=== PATIENT | female | born 1955 | race Caucasian/White ===

== ENCOUNTER 2017-05-03 13:07 | Inpatient (IN) | payer OTHER ==
[2017-05-03] MEDS ORDERED: BISACODYL 10 MG SUPP PR PRN (17:09)
[2017-05-03] MEDS ORDERED: SENNOSIDES 1 TAB PO PRN (17:09)
--- NOTE | 2017-05-03 17:38 | PDOREHIP ---
Admission [facility] - Admission - 3 Day Assessment Period Admission Date/Day 1: 05/03/17 Day 2: 05/04/17 Day 3: 05/05/17 - Active Diagnoses Comorbidities and Co-existing Conditions at Admission: 50973. None of the Above - Skin Conditions Unhealed Pressure Ulcer (1 or more/Stage 1 or >)-Admission: 0. No
[2017-05-03] MEDS: ACETAMINOPHEN 500 MG TAB PO PRN (17:44)
--- NOTE | 2017-05-03 19:34 | GHP ---
[f rep st] HISTORY AND PHYSICAL POST ADMISSION PHYSICIAN EVALUATION AND REHABILITATION TREATMENT PLAN DATE OF ADMISSION: 05/03/2017 DATE OF EVALUATION: 05/03/2017. TIME OF EVALUATION: 1655. REFERRING FACILITY: [facility] [place]. IMPAIRMENT GROUP: 1.1. DATE OF ONSET: 04/22/2017. REFERRING PHYSICIAN: Dr. Lemus. CONSULTING PHYSICIANS: There were consultations by Neurology and Surgery. REHABILITATION DIAGNOSIS: Cerebrovascular accident. ETIOLOGIC DIAGNOSIS: Left body involvement (right brain). HISTORY OF PRESENT ILLNESS: This patient was admitted to [facility] [place] on 04/22/2017, with vomiting. She had previously been admitted on 04/16/2017, with an incarcerated left inguinal hernia and had urgent surgical repair. She was discharged home the next day, and several days later, she began having vomiting and reported that she had considerable abdominal distention prior to vomiting. Abdominal CT on 04/22/2017, showed an ileus, which was considered to be postoperative. She was initially treated with NG drainage and IV hydration, but lost the NG tube and, eventually, the decision was made to put her on total parenteral nutrition, and a PICC line was inserted. On 04/29/2017, she was noted to have left-sided neglect. A stroke alert was called, and she had a head CT which showed an acute/subacute stroke in the right parietal region. She was evaluated by Teleneurology, Dr. Huerta. She was not a candidate for tPA. She also had shaking of the left arm and leg, consistent with a seizure. It was subsequently discovered that her PICC line had been placed intra- arterially, and this was thought to be the cause of the stroke. She was treated with aspirin, but no other secondary prevention medications were indicated, as etiology had been established as embolic from the intra-arterial PICC line. There was a tiny adherent thrombus along the course of the PICC line noted on CT angiogram. The PICC line was removed. She had some functional improvement, regaining some of her strength in her left upper extremity. She was initially on a heparin drip, which was subsequently discontinued, and she was stable for discharge to rehabilitation. Other labs and studies during her stay: Modified barium swallow was done on , which showed mildly impaired bolus control, mildly delayed initiation of pharyngeal swallow, moderate silent laryngeal penetration but no aspiration, and trace pharyngeal residue. The diagnosis was [id number] oropharyngeal dysphagia. She had abdominal CTs and plain x-rays, which demonstrated resolution of the postoperative ileus. She had a chest x-ray on 04/24/2017, which showed moderate patchy bibasilar airspace opacities and prominent interstitial markings consistent with chronic scarring or interstitial lung disease with possibility of superimposed infection and showed biapical bullous and emphysematous changes. MRI of the brain on 04/29/2017, showed patchy cortical and subcortical acute infarction in the high right frontal and parietal lobes. On 04/30/2017, a BMP showed normal renal function and electrolytes, but for a low calcium at 7.9. Liver functions showed a serum albumin of 3.8 and otherwise were within normal limits. A CBC showed a slightly elevated white blood cell count at 10.4. She had anemia, with a hemoglobin of 10.3 and hematocrit of 32.6. She had an elevated MCV at 103. Platelet count was elevated at 453. PRECAUTIONS: She is a fall risk, and she has aspiration precautions. ACTIVE COMORBIDITIES: She has the tier 2 comorbidity of dysphagia. She, otherwise, has no tier 1, tier 2 or tier 3 comorbidities. PAST MEDICAL HISTORY: 1. COPD. 2. Bladder cancer. 3. History of a decubitus ulcer over the coccyx. 4. Lung infection/empyema, with 20 days of intubation, approximately a year ago. PAST SURGICAL HISTORY: 1. Transurethral bladder surgery. 2. Femoral hernia repair on the left, 04/16/2017. 3. Knee arthroscopy. 4. Video-assisted thoracoscopy, approximately a year ago. PRE-HOSPITAL MEDICATIONS: 1. Albuterol 2 puffs q.4 hours p.r.n. 2. Beclomethasone inhaler 80 mcg 2 puffs twice daily. 3. Oxycodone 5 mg p.o. q.4 hours p.r.n. 4. Tiotropium 2 puffs daily. ADMISSION MEDICATIONS: 1. Acetaminophen 500 mg p.o. q.6 hours p.r.n. 2. Albuterol 2 puffs inhaled q.4 hours p.r.n. 3. Aspirin 162 mg p.o. daily. 4. Beclomethasone inhaled 2 puffs twice daily. 5. Tiotropium 2 puffs inhaled daily. ALLERGIES: There are no known drug allergies. FAMILY HISTORY: Noncontributory. SOCIAL HISTORY: She is a part former smoker. She quit in 2011. She has occasional alcohol, approximately 2 drinks per week. She is and lives with her . She has local children and grandchildren. She works as a what job titles mean at an [employer]. REVIEW OF SYSTEMS: She reports approximately a 9 pound weight loss during her hospitalization. She reports right lower quadrant abdominal pain, which she describes as sharp. She had a bowel movement today. She denies nausea or vomiting, and she has a good appetite. She denies loss of sensation or motor weakness. She reports that her vision is blurred, especially for near vision. She denies diplopia. She is not aware of difficulty swallowing. She denies headache or pain. Otherwise, she denies chest pain or palpitations. She denies dysuria or urinary frequency. She denies joint pain or joint swelling, and, otherwise, a 10-point review of systems is negative. PHYSICAL EXAM: VITAL SIGNS: Blood pressure is 94/72. Heart rate is 109. Respiratory rate is 15. Oxygen saturation is 96% on 3 L. Temperature is 36.7 degrees centigrade. Her weight is 39.1 kg, for a body mass index of 16.3. GENERAL: This is a thin, chronically ill, malnourished-appearing woman. Appears older than her chronologic age. Cooperative and in no acute distress. HEENT: Extraocular movements are intact. Pupils are equal, round, and reactive to light. Mucous membranes are moist. Dentition is in good condition. She has an uncrowded airway, Mallampati class 1. There is no posterior oropharyngeal mucus and no mucosal lesions. NECK: Supple, with no thyromegaly. HEART: Regular rate and rhythm with no murmurs, rubs, or gallops. LUNGS: She has reduced air movement bilaterally. There are no wheezes, rhonchi, or crackles. ABDOMEN: Soft, mildly tender in the right lower quadrant, nondistended, with normoactive bowel sounds. There is a questionable stool mass in the right lower quadrant. EXTREMITIES: There is no cyanosis or clubbing. There is trace edema, especially on the right foot. Radial pulses are 2+ bilaterally. Pedal pulses, the dorsalis pedis pulse is 2+ on the left and neither dorsalis pedis nor posterior tibialis pulse is palpable on the left foot. There is brisk capillary refill and the left foot is warm. NEUROLOGIC: She is alert and oriented x3. Cranial nerves 2 through 12 are grossly intact. Her strength is reduced, approximately 4/5 in the left upper extremity overall, including the biceps, triceps and hand access rep. Her deltoids are 5/5 bilaterally. There is 4+/5 strength to the left hip flexor and hamstring. Otherwise, lower extremity strength is 5/5 overall bilaterally. Sensation is intact to light touch. Deep tendon reflexes are 2+ bilaterally at the biceps, patellar, and Achilles tendons. Plantar reflex is indeterminate bilaterally. There is pronator drift on the left upper extremity. Finger-to- nose on the right is normal, on the left is slow and mildly inaccurate, but smooth and without past-pointing. SKIN: There is no skin ulceration. There is no rash. There is scarring, which is nonblanching, directly over the coccyx , but there is no erythema. Current level of function per the preadmission screen: Regarding diet, feeding , and swallowing she required supervision and setup. For grooming she required supervision and setup. For bathing she needed assistance. For dressing she needed minimal assistance. For toileting she needed assistance. For bed mobility she needed supervision and setup. Transfers were accomplished with minimal assist, verbal cues, and a front-wheeled walker. Sitting balance was fair minus requiring minimal assist, but appears to be better on today's exam. Endurance was poor. She was able to walk 75 feet. She could stand for 1 to 3 minutes. She had loss of balance to the left side and needed assistance from the therapist to correct. Regarding cognition, she was noted to be able to follow simple directions. She needed some repetition for new learning. She had poor safety awareness. She was noted to have left inattention and to collide with objects on the left. IMPRESSION: This patient is a 62-year-old woman who was hospitalized with abdominal pain and vomiting and was diagnosed with a postoperative ileus. This was treated nonsurgically, but eventually, she needed total parenteral nutrition and she had the unfortunate occurrence of a cerebrovascular accident due to the PICC line for the total parenteral nutrition being placed intra- arterially, rather than intravenously. She was not appropriate for thrombolytics. However, she was on a heparin drip initially and then subcutaneous heparin. The PICC line had some thrombus around it. It was removed. She had improvement in her nutrition, and was able to take food and drink by mouth. However, overall she has had weight loss during her hospitalization, and she has dysphagia requiring a dysphagia 2 diet and nectar thick liquids. Her functional status is further compromised by severe chronic obstructive pulmonary disease, with a history of a 37% FEV1 and continuous oxygen dependency. She is otherwise medically stable and appropriate for rehabilitation. Her goal is to complete a rehabilitation stay and then return home with family, Home Health Care, and any equipment that she may need. For a safe discharge, it is expected that she will achieve moderate independence with mobility, activities of daily living, cognition, swallowing, and medication management. There will be medication education and neurological education for the patient and her family. There will be family training for the patient to go home. She will have therapy with Physical Therapy, Occupational Therapy, and Speech and Language Pathology for 60 minutes per day per discipline on 5 to 7 days of the week. Her expected duration of stay is 14 to 17 days. It is anticipated that upon discharge she will continue to benefit from Home Health Services, including Speech and Language Pathology, Occupational Therapy and Physical Therapy. Additionally, she will benefit from a stroke support group. PLAN: 1. Cerebrovascular accident, right frontal and parietal, with left-sided weakness and hemineglect. PT and OT to optimize mobility and activities of daily living. 2. Dysphagia and cognitive impairment to be assessed further and treated per Speech and Language Pathology. 3. COPD. Continue oxygen and inhalers. 4. Right lower quadrant abdominal pain and history of postoperative ileus. Low threshold to investigate further with abdominal imaging and labs. 5. Malnutrition, clinically with weight loss and underweight status. Will have evaluation and treatment per the dietitian. Will repeat a comprehensive metabolic profile in the morning. 6. Anemia with an elevated MCV. We will check a CBC in the morning, as well as an iron panel and vitamin B12. 7. Prophylaxis. She is not discharged with any deep vein thrombosis prophylaxis from the hospital. She will be evaluated regarding mobility and if mobility is sufficient there will be no need for pharmacologic prophylaxis. She will be given sequential compression devices to her legs at night. 8. Skin. History of coccygeal decubitus ulcer. She has Allevyn over her coccyx for protection, but no decubitus ulcer at present. She appears able to have normal mobility in bed and has normal sensation. She will be monitored closely. /[id number]/MODL MTDD
[2017-05-03] MEDS: BECLOMETHASONE QVAR 80 MDI IH SCH (21:30)
[2017-05-04] MEDS: ACETAMINOPHEN 500 MG TAB PO PRN ×4 (01:46→20:20)
[2017-05-04] MEDS: ASPIRIN 81 MG CHEWABLE TAB PO SCH (07:39)
[2017-05-04] MEDS: BECLOMETHASONE QVAR 80 MDI IH SCH ×2 (08:03→19:39)
[2017-05-04] MEDS: ALBUTEROL 200 PUFFS/18 GM MDI IH PRN ×3 (08:12→19:38)
[2017-05-04] MEDS ORDERED: Tiotropium Bromide [Spiriva Respimat] 2 INH IH SCH (09:00)
--- NOTE | 2017-05-04 09:45 | SOAPPROG ---
SOAP Progress Note Assessment/Plan: Assessment: Cerebrovascular accident, right frontal and parietal, with left-sided weakness and hemineglect. * PT and OT to optimize mobility and activities of daily living. Dysphagia and cognitive impairment to be assessed further and treated per Speech and Language Pathology. COPD. Continue oxygen and inhalers. * Encouraged incentive spirometry. Right lower quadrant abdominal pain and history of postoperative ileus. Resolved. Malnutrition, clinically with weight loss and underweight status. Low albumin. * [employer] Company Truck Driver consult. Anemia with an elevated MCV. * Has iron deficiency. Will replete p.o. beginning 05/04/2017. * B12 and liver functions are normal. Unclear etiology of macrocytosis. Prophylaxis. She is not discharged with any deep vein thrombosis prophylaxis from the hospital. She will be evaluated regarding mobility. Most likely there is no need for pharmacologic prophylaxis. She will have sequential compression devices to her legs at night. Skin. History of coccygeal decubitus ulcer. She has Allevyn over her coccyx for protection, but no decubitus ulcer at present. She appears able to have normal mobility in bed and has normal sensation. Optimize nutrition. She will be monitored closely. 05/04/17 12:46 Subjective: No complaints. Slept well. No cough or dyspnea. Abdominal discomfort is resolved. Bowels moving normally. Objective: Vital Signs Temp Pulse Resp BP Pulse Ox 36.8 C 90 16 102/67 97 05/04/17 06:39 05/04/17 06:39 05/04/17 06:39 05/04/17 06:39 05/04/17 06:39 05/03/17 05/04/17 05/05/17 05:59 05:59 05:59 Intake Total 240 Output Total 1 Balance 239 Physical Exam - Physical Exam General Appearance: WD/WN, alert, no apparent distress, thin Respiratory: normal breath sounds, crackles (Very fine crackles bilaterally at lung bases), No rhonchi, No wheezing Cardiac/Chest: regular rate, rhythm, tachycardia, No diastolic murmur, No systolic murmur Skin: normal color, warm/dry Neuro/Psych: alert, normal mood/affect, oriented x 3 ICD10 Worksheet Patient Problems: Problems Problem Status Onset CVA (cerebral vascular accident) Acute
[2017-05-04 10:14] LABS: % IMMATURE GRANULYOCYTES 0.4 % (0.0-1.1); ABSOLUTE IMMATURE GRANULOCYTES 0.05 10^3/uL (0.00-0.10); ADD DIFF? NO; ADD MORPH? NO; ADD SCAN? NO; ATYPICAL LYMPHOCYTE FLAG 20 (0-99); FRAGMENT RBC FLAG 0 (0-99); HEMATOCRIT 34.8 % (38.0-47.0); HEMOGLOBIN 11.1 g/dL (12.6-16.3); LEFT SHIFT FLG 0 (0-99); LIPEMIA HEMOLYSIS FLAG 80 (0-99); MEAN CELL HEMOGLOBIN 33.3 pg (27.9-34.1); MEAN CELL HEMOGLOBIN CONCENTR. 31.9 g/dL (32.4-36.7); MEAN CELL VOLUME 104.5 fL (81.5-99.8); MEAN PLATELET VOLUME 9.4 fL (8.7-11.7); PLATELET CLUMPS FLAG 20 (0-99); PLATELET COUNT 686 10^3/uL (150-400); RED BLOOD CELL COUNT 3.33 10^6/uL (4.18-5.33); RED CELL DISTRIBUTION WIDTH 12.4 % (11.5-15.2)
[2017-05-04 10:31] LABS: ALANINE AMINOTRANSFERASE 38 IU/L (9-52); ALBUMIN 2.9 g/dL (3.5-5.0); ALKALINE PHOSPHATASE 122 IU/L (38-126); ANION GAP 9 mEq/L (8-16); ASPARTATE AMINOTRANSFERASE 15 IU/L (14-46); BILIRUBIN,TOTAL 0.2 mg/dL (0.1-1.4); CALCIUM 8.9 mg/dL (8.5-10.4); CARBON DIOXIDE 33 mEq/l (22-31); CHLORIDE 100 mEq/L (97-110); CREATININE 0.4 mg/dL (0.6-1.0); GLOMERULAR FILTRATION RATE > 60; GLUCOSE 108 mg/dL (70-100); POTASSIUM 4.1 mEq/L (3.5-5.2); SODIUM 142 mEq/L (134-144); TOTAL PROTEIN 5.5 g/dL (6.3-8.2)
[2017-05-04 10:40] LABS: % SATURATION 8 % (20-55); TOTAL IRON BINDING CAPACITY 237 ug/dL (260-490)
[2017-05-04] MEDS: FERROUS SULFATE 325 MG TAB PO SCH (14:23)
[2017-05-04] MEDS: TIOTROPIUM INHALER 18 MCG/DOSE 5 DOSE/MDI IH SCH (15:35)
[2017-05-05] MEDS: ALBUTEROL 200 PUFFS/18 GM MDI IH PRN ×2 (07:43→19:20)
[2017-05-05] MEDS: TIOTROPIUM INHALER 18 MCG/DOSE 5 DOSE/MDI IH SCH (07:44)
[2017-05-05] MEDS ORDERED: TIOTROPIUM INHALER 18 MCG/DOSE 5 DOSE/MDI IH SCH (09:00)
[2017-05-05] MEDS: BECLOMETHASONE QVAR 80 MDI IH SCH ×2 (09:17→23:07)
[2017-05-05] MEDS: FERROUS SULFATE 325 MG TAB PO SCH (09:39)
[2017-05-05] MEDS: ASPIRIN 81 MG CHEWABLE TAB PO SCH (09:39)
[2017-05-05] MEDS: ACETAMINOPHEN 500 MG TAB PO PRN ×3 (09:39→22:39)
--- NOTE | 2017-05-05 13:27 | HOSPPROG ---
Hospitalist Progress Note Assessment/Plan: Assessment: 62 yo F p/w acute CVA provoked by arterial PICC line Plan: # Cerebrovascular accident, right frontal and parietal, with left-sided weakness and hemineglect. Substantially improving - PT and OT to optimize mobility and activities of daily living. - Persistent, residual headache, mildly improved w/ tylenol, add PRN low dose oxy IR - Massage therapy requested for Sunday # Dysphagia and cognitive impairment to be assessed further and treated per Speech and Language Pathology. # Chronic hypoxic respiratory failure 2/2 COPD. Continue oxygen and inhalers. - Encouraged incentive spirometry. # Postoperative ileus. Resolved. # Malnutrition, clinically with weight loss and underweight status w/ BMI 15.7. Low albumin. - Power Generation Plant Operator consult. # Macrocytic Anemia. Unclear etiology, likely 2/2 a chronic inflammatory disease process resulting in iron sequestration and low values - cont PO iron - no e/o blood loss # History of coccygeal decubitus ulcer. She has Allevyn over her coccyx for protection, but no decubitus ulcer at present. She appears able to have normal mobility in bed and has normal sensation. Optimize nutrition. She will be monitored closely. PPx. High risk, recent CVA, keep on SCDs Code. Full Diet. Regular Dispo. ADD uncertain, pending therapy reassessments Subjective: reports improvements in strength, ongoing CALI Objective: Vital Signs Temp Pulse Resp BP Pulse Ox 36.5 C 114 H 17 115/90 H 91 L 05/05/17 07:34 05/05/17 07:34 05/05/17 07:34 05/05/17 07:34 05/05/17 07:34 Laboratory Results 05/04/17 08:40 05/04/17 08:40 05/04/17 05/05/17 05/06/17 05:59 05:59 05:59 Intake Total 240 1166 874 Output Total 1 1 Balance 239 1165 874 - Physical Exam Constitutional: no apparent distress, appears nourished, chronically ill appearing, uncomfortable Cardiovascular: regular rate and rhythym, no murmur, rub, or gallop, No edema Respiratory: no respiratory distress, no rales or rhonchi, clear to auscultation Gastrointestinal: normoactive bowel sounds, soft, non-tender abdomen, no palpable masses, No guarding, No distension Neurologic: AAOx3, sensation intact bilaterally, CN II-XII Intact, No weakness ( motor 5/5 bilat UE/LE) Psychiatric: interacting appropriately, not anxious, not encephalopathic, thought process linear ICD10 Worksheet Patient Problems: Problems Problem Status Onset CVA (cerebral vascular accident) Acute
[2017-05-05] MEDS: oxyCODONE IR 5 MG TAB PO PRN ×3 (14:11→22:39)
[2017-05-06] MEDS: ACETAMINOPHEN 500 MG TAB PO PRN ×4 (08:02→21:25)
[2017-05-06] MEDS: oxyCODONE IR 5 MG TAB PO PRN ×4 (08:02→21:25)
[2017-05-06] MEDS: ASPIRIN 81 MG CHEWABLE TAB PO SCH (08:02)
[2017-05-06] MEDS: FERROUS SULFATE 325 MG TAB PO SCH (08:02)
[2017-05-06] MEDS: ALBUTEROL 200 PUFFS/18 GM MDI IH PRN ×2 (08:03→20:00)
[2017-05-06] MEDS: BECLOMETHASONE QVAR 80 MDI IH SCH ×2 (08:03→19:46)
[2017-05-06] MEDS: TIOTROPIUM INHALER 18 MCG/DOSE 5 DOSE/MDI IH SCH (08:05)
--- NOTE | 2017-05-06 13:33 | HOSPPROG ---
Hospitalist Progress Note Assessment/Plan: Assessment: 62 yo F p/w acute CVA provoked by arterial PICC line Plan: # Cerebrovascular accident, right frontal and parietal, with left-sided weakness and hemineglect. Substantially improving, able to transfer w/o assist today - PT and OT to optimize mobility and activities of daily living. - Persistent, residual headache, improved w/ combination of tylenol and oxy IR - Massage therapy requested for Sunday # Chronic pain w/ continuous opiate dependency. Pt reported to RN that she uses Oxy IR at home, which explains her tolerance to the oxy IR for CALI - at discharge, will need to determine safe amount of oxy IR to prescribe specifically for use of post-CVA CALI # Dysphagia and cognitive impairment to be assessed further and treated per Speech and Language Pathology. # Chronic hypoxic respiratory failure 2/2 COPD. Continue oxygen and inhalers. - Encouraged incentive spirometry. - suspect this is the cause of her baseline sinus tach, reports baseline HR is 100-120, no further w/u indicated # Postoperative ileus. Resolved. # Malnutrition, clinically with weight loss and underweight status w/ BMI 15.7. Low albumin. - Ios Programmer consult. # Macrocytic Anemia. Unclear etiology, likely 2/2 a chronic inflammatory disease process resulting in iron sequestration and low values - cont PO iron - no e/o blood loss # History of coccygeal decubitus ulcer. She has Allevyn over her coccyx for protection, but no decubitus ulcer at present. She appears able to have normal mobility in bed and has normal sensation. Optimize nutrition. She will be monitored closely. PPx. High risk, recent CVA, keep on SCDs Code. Full Diet. Regular Dispo. ADD uncertain, pending therapy reassessments Subjective: pain level down to 1 w/ oxy/tylenol combo, headache has reoccured today, increasing mobility Objective: Vital Signs Temp Pulse Resp BP Pulse Ox 36.6 C 109 H 22 H 116/86 H 94 05/06/17 08:00 05/06/17 08:00 05/06/17 08:00 05/06/17 08:00 05/06/17 08:00 Laboratory Results 05/04/17 08:40 05/04/17 08:40 05/05/17 05/06/17 05/07/17 05:59 05:59 05:59 Intake Total 1166 1732 476 Output Total 1 Balance 1165 1732 476 - Physical Exam Constitutional: no apparent distress, not in pain, chronically ill appearing, No uncomfortable Cardiovascular: tachycardia, No systolic murmur, No irregularly irregular, No edema Respiratory: no respiratory distress, no rales or rhonchi, clear to auscultation , No expiratory wheeze, No inspiratory crackles, No bronchial breath sounds Gastrointestinal: normoactive bowel sounds, soft, non-tender abdomen, no palpable masses Neurologic: AAOx3, sensation intact bilaterally, CN II-XII Intact, No weakness Psychiatric: interacting appropriately, not anxious, not encephalopathic, thought process linear ICD10 Worksheet Patient Problems: Problems Problem Status Onset CVA (cerebral vascular accident) Acute
[2017-05-07] MEDS: oxyCODONE IR 5 MG TAB PO PRN ×5 (02:57→21:34)
[2017-05-07] MEDS: FERROUS SULFATE 325 MG TAB PO SCH (07:51)
[2017-05-07] MEDS: ACETAMINOPHEN 500 MG TAB PO PRN ×4 (07:51→21:34)
[2017-05-07] MEDS: ASPIRIN 81 MG CHEWABLE TAB PO SCH (07:51)
[2017-05-07] MEDS: ALBUTEROL 200 PUFFS/18 GM MDI IH PRN (07:52)
[2017-05-07] MEDS: BECLOMETHASONE QVAR 80 MDI IH SCH ×2 (07:52→20:00)
[2017-05-07] MEDS: TIOTROPIUM INHALER 18 MCG/DOSE 5 DOSE/MDI IH SCH (07:53)
--- NOTE | 2017-05-07 13:03 | SOAPPROG ---
SOAP Progress Note Assessment/Plan: Assessment: Cerebrovascular accident, right frontal and parietal, with left-sided weakness and hemineglect. * Initial functional independence measure 82 on 05/07/2017. Independent with bed mobility and transfers, independent in room. Ambulated 200 feet standby assist with no device. Climbed 9 stairs x2 with rest break. Independent with activities of daily living. Advancing to independent on the unit today * Has left gaze preference and impaired visual acuity, 20/40 on left and 20/50 on right. * Continue PT and OT to optimize mobility and activities of daily living. Dysphagia. Advanced to dysphagia 3 diet and thin liquids; trial of regular diet today 05/07/2017. Continue Speech and Language Pathology. Dysphonia. Pre-existing following prolonged intubation approximately a year ago but subjectively worse since CVA. YARN SPOOLER recommends ENT evaluation to visualize vocal cords. COPD. Continue oxygen and inhalers. * Encouraged incentive spirometry. Right lower quadrant abdominal pain and history of postoperative ileus. Resolved. Malnutrition, clinically with weight loss and underweight status. Low albumin. * Brick Chimney Builder consult. * Eating 100% of meals plus supplements. Anemia with an elevated MCV. * Has iron deficiency. Will replete p.o. beginning 05/04/2017. * B12 and liver functions are normal. Unclear etiology of macrocytosis. Prophylaxis. Mobility has improved. There is no need for pharmacologic prophylaxis. She will have sequential compression devices to her legs at night. Skin. History of coccygeal decubitus ulcer. She has Allevyn over her coccyx for protection, but no decubitus ulcer at present. She appears able to have normal mobility in bed and has normal sensation. Optimize nutrition. She will be monitored closely. Attended staffing, 15 minutes. Discussed with dietitian, nursing, PT, OT, YARN SPOOLER. Set discharge date of 05/09/2017. Follow up with neuro optometry regarding visual issues. Follow up with ENT regarding dysphonia. Recommend pre driving screen before returning to driving. Can likely return to work on a limited basis for instance to hours a day 3 days a week; dysphonia and advice of ENT may limit work hours. 05/07/17 12:58 Subjective: No complaints, feeling good, not in pain at present, no cough or dyspnea, no fevers or chills. Objective: Vital Signs Temp Pulse Resp BP Pulse Ox 36.8 C 105 H 20 106/74 92 05/06/17 18:05 05/06/17 18:05 05/06/17 18:05 05/06/17 18:05 05/06/17 18:05 Laboratory Results 05/04/17 08:40 05/04/17 08:40 05/06/17 05/07/17 05/08/17 05:59 05:59 05:59 Intake Total 1852 1326 Balance 1852 1326 - Time Spent With Patient Time Spent With Patient: Greater than 35 minutes floor time today, including more than 50% of time in coordination of care during staffing meeting, and counseling patient. Physical Exam - Physical Exam General Appearance: alert, no apparent distress, cachetic Respiratory: No respiratory distress, No accessory muscle use Skin: normal color, warm/dry Neuro/Psych: no motor/sensory deficits, alert, normal mood/affect, oriented x 3 , other (Ambulates in [place] with no device, holding oxygen tank in wheeled carrier.) ICD10 Worksheet Patient Problems: Problems Problem Status Onset CVA (cerebral vascular accident) Acute
[2017-05-08] MEDS: ACETAMINOPHEN 500 MG TAB PO PRN ×4 (02:24→19:03)
[2017-05-08] MEDS: oxyCODONE IR 5 MG TAB PO PRN ×2 (02:24→07:51)
[2017-05-08 07:48] VITALS: RESP 16
[2017-05-08] MEDS: FERROUS SULFATE 325 MG TAB PO SCH (07:52)
[2017-05-08] MEDS: BECLOMETHASONE QVAR 80 MDI IH SCH ×2 (07:53→20:02)
[2017-05-08] MEDS: TIOTROPIUM INHALER 18 MCG/DOSE 5 DOSE/MDI IH SCH (07:54)
[2017-05-08] MEDS: ALBUTEROL 200 PUFFS/18 GM MDI IH PRN ×3 (07:56→20:04)
[2017-05-08] MEDS: ASPIRIN 81 MG CHEWABLE TAB PO SCH (08:00)
--- NOTE | 2017-05-08 14:01 | SOAPPROG ---
SOAP Progress Note Assessment/Plan: Assessment: Cerebrovascular accident, right frontal and parietal, with left-sided weakness and hemineglect. * Initial functional independence measure 82 on 05/07/2017. Independent with bed mobility and transfers, independent in room. Ambulated 200 feet standby assist with no device. Climbed 9 stairs x2 with rest break. Independent with activities of daily living. Advancing to independent on the unit 05/07/2017. * Has left gaze preference and impaired visual acuity, 20/40 on left and 20/50 on right. * Continue PT and OT to optimize mobility and activities of daily living. Dysphagia. Advanced to dysphagia 3 diet and thin liquids; advanced to regular diet today 05/08/2017. Continue Speech and Language Pathology. Dysphonia. Pre-existing following prolonged intubation approximately a year ago but subjectively worse since CVA. MATERIALS SCIENTIST recommends ENT evaluation to visualize vocal cords. Micro emboli visible under fingernails of right hand. No signs or symptoms of compromised circulation otherwise. Likely consequence of arterial placement of PICC line. Palpable nodule at PICC line site is likely a blood clot versus eschar versus scarring which is likely to resolve with no further need for intervention. COPD. Continue oxygen and inhalers. * Encouraged incentive spirometry. Right lower quadrant abdominal pain and history of postoperative ileus. Resolved. Malnutrition, clinically with weight loss and underweight status. Low albumin. * Social And Human Services Assistant consult. * Eating 100% of meals plus supplements. Anemia with an elevated MCV. * Has iron deficiency. Will replete p.o. beginning 05/04/2017. * B12 and liver functions are normal. Unclear etiology of macrocytosis. Prophylaxis. Mobility has improved. There is no need for pharmacologic prophylaxis. She will have sequential compression devices to her legs at night. Skin. History of coccygeal decubitus ulcer. She has Allevyn over her coccyx for protection, but no decubitus ulcer at present. She appears able to have normal mobility in bed and has normal sensation. Optimize nutrition. She will be monitored closely. Continue discharge date of 05/09/2017. Follow up with neuro optometry regarding visual issues. Follow up with ENT regarding dysphonia. Follow up with General surgery. Outpatient OT and MATERIALS SCIENTIST. Recommend pre driving screen before returning to driving. Can likely return to work on a limited basis, for instance to hours a day 3 days a week; dysphonia and advice of ENT may limit work hours. 05/08/17 14:13 Subjective: Notes a lump at the PICC line site on her right arm. Not tender and no pain proximally or in axilla. Also has noticed new seo on the fingernails of her right arm. No cough or dyspnea, no fevers or chills. Feels ready to go home. Objective: Vital Signs Temp Pulse Resp BP Pulse Ox 36.7 C 95 16 105/73 91 L 05/08/17 07:47 05/08/17 07:47 05/08/17 07:47 05/08/17 07:47 05/08/17 07:47 Laboratory Results 05/04/17 08:40 05/04/17 08:40 05/07/17 05/08/17 05/09/17 05:59 05:59 05:59 Intake Total 1326 1260 Balance 1326 1260 Physical Exam - Physical Exam General Appearance: alert, no apparent distress, cachetic Respiratory: normal breath sounds, No crackles, No rhonchi, No wheezing Cardiac/Chest: regular rate, rhythm, tachycardia, No edema Skin: normal color, warm/dry, other (multiple longitudinal dark brown markings 1 - 2 mm long under proximal nails R hand.) Neuro/Psych: no motor/sensory deficits, alert, normal mood/affect, oriented x 3 ICD10 Worksheet Patient Problems: Problems Problem Status Onset CVA (cerebral vascular accident) Acute
--- NOTE | 2017-05-08 14:24 | PDOREHIP ---
Admission [facility] - Admission - 3 Day Assessment Period Admission Date/Day 1: 05/03/17 Day 2: 05/04/17 Day 3: 05/05/17 Discharge [facility] - Discharge - 3 Day Assessment Period 2 Days Prior to Anticipated Discharge Date: 05/07/17 1 Day Prior to Anticipated Discharge Date: 05/08/17 Anticipated Discharge Date: 05/09/17 - Discharge Skin Conditions Unhealed Pressure Ulcer (1 or more/Stage 1 or >)-Discharge: 0. No
[2017-05-09] MEDS: ASPIRIN 81 MG CHEWABLE TAB PO SCH (07:13)
[2017-05-09] MEDS: FERROUS SULFATE 325 MG TAB PO SCH (07:14)
[2017-05-09] MEDS: ALBUTEROL 200 PUFFS/18 GM MDI IH PRN (07:14)
[2017-05-09] MEDS: BECLOMETHASONE QVAR 80 MDI IH SCH (07:14)
[2017-05-09] MEDS: ACETAMINOPHEN 500 MG TAB PO PRN ×2 (07:15→11:09)
[2017-05-09 07:40] VITALS: BP 106/70; PULSE 120; TEMP 97.3; O2SAT 98
[2017-05-09] MEDS: TIOTROPIUM INHALER 18 MCG/DOSE 5 DOSE/MDI IH SCH (12:48)
--- NOTE | 2017-05-09 14:40 | GDS ---
[f rep st] DISCHARGE SUMMARY ADMITTING DIAGNOSES: Cerebrovascular accident. DISCHARGE DIAGNOSES: 1. Cerebrovascular accident. 2. Chronic obstructive pulmonary disease. 3. Cachexia. 4. Dysphonia. 5. Iron-deficiency anemia. CONSULTATIONS: There were none. PROCEDURES: There were none. COMPLICATIONS: There were none. HISTORY AND HOSPITAL COURSE: This patient was admitted to [facility] initially and was diagnosed with a postoperative ileus. She had had inguinal hernia surgery recently. Treatment of the ileus involved nasogastric feeding and eventually total parenteral nutrition. The ileus resolved, but she had a stroke during her hospital stay. The etiology was determined to be PICC line having been placed for TPN in the brachial artery rather than in the vein and subsequently an embolic stroke. It was in the right frontal and parietal regions. She had left-sided weakness and hemineglect. PICC line was removed and she was soon medically stabilized and ready for inpatient rehabilitation. She had debility when she was admitted. She was requiring assistance with bathing, dressing, toileting, and transfers. She had impaired sitting balance and reduced endurance. She had improvement throughout her stay. Functional independence measure was quantified on 05/09 and was 82, which is consistent with assisted living facility level of function. She was independent with bed mobility and transfers and independent in her room. She had ambulated 200 feet with standby assist and no device. She was able to climb 9 stairs x2 with a rest break. She was advanced to independent on the unit on 05/07/2017. She had dysphagia initially and was advanced progressively to a regular diet. She was noted to have dysphonia. This was pre-existing and likely followed a prolonged intubation and hospitalization approximately a year prior, but patient felt it was worse since the CVA. Speech and Language Pathology recommended an ENT evaluation to examine her vocal cords. She had COPD. She was maintained on oxygen and inhalers, and her COPD was stable. Regarding malnutrition and cachexia, she had a consult with the dietitian and supplements were provided. She was eating 100% of her meals. She had anemia with an elevated MCV. B12 and liver functions were normal. She was found to have iron deficiency, which was repleted p.o. beginning 05/04/2017. PHYSICAL EXAM ON DAY OF DISCHARGE: VITAL SIGNS: Blood pressure is 106/70, heart rate is 120, respiratory rate is 16, oxygen saturation is 98% on 3 L. Temperature is 36.3 degrees centigrade. Her weight is 36.4 kg for a body mass index of 15.2. GENERAL: This is a cachectic woman sitting up in bed, cooperative, and in no acute distress. HEART: There is a regular rate and rhythm with no murmurs, rubs, or gallops. She is tachycardic. LUNGS: Clear to auscultation bilaterally. ABDOMEN: Soft, nontender, nondistended with normoactive bowel sounds. NEUROLOGIC: She is alert and oriented x3. There is no focal weakness. She ambulates with a normal gait and no device. LABORATORIES AND STUDIES: During her stay on 05/04/2017, she had an elevated white blood cell count at 11.83. There was no left shift. Hemoglobin was 11.1 , hematocrit was 34.8. MCV was elevated at 104.5. Vitamin B12 was normal at 585. Iron panel revealed a low iron at 20, a low TIBC at 237 and a very low iron saturation at 8%. Renal function and electrolytes revealed an elevated carbon dioxide at 33, a low creatinine at 0.4, and otherwise they were within normal limits. Liver function tests, other than a low albumin at 2.9 were also within normal limits. DISCHARGE PLAN: Condition upon discharge is good. Activity is ad donnie, but no driving until she completes a neuroophthalmology screen regarding vision changes. Diet is regular. DATE OF NEXT APPOINTMENT: She will follow up with her primary care provider, Dr. Ekaterina Bravo, on 05/14/2017. She will follow up with Neuro- ophthalmology and Otolaryngology, to be scheduled by [facility]. MEDICATIONS ON DISCHARGE: 1. Ferrous sulfate 325 mg p.o. daily through June 01. 2. Oxycodone IR 2.5 to 5 mg p.o. q.4 hours p.r.n. 3. Senna 1 p.o. b.i.d. p.r.n. 4. Aspirin 162 mg p.o. daily. 5. Acetaminophen 500 mg p.o. q.6 hours p.r.n. headache. 6. Albuterol 2 puffs q.4 hours p.r.n. 7. Beclomethasone inhaler 80 mcg 2 puffs b.i.d. 8. Tiotropium 2 inhalations daily. ISSUES TO BE ADDRESSED AT FOLLOWUP: 1. Functional status and vision changes. She will have outpatient therapies per Jaylen and she should follow up with Neuro-ophthalmology. 2. Dysphagia. She has been advanced to regular diet. 3. Dysphonia. She needs to see Otolaryngology to examine her vocal cords. She may need a period of vocal rest, to be determined by Otolaryngology. 4. History of arterial placement of PICC line. She was noted to have microemboli under the distal fingernails of the right hand. These are expected to resolve over time. 5. COPD has been stable. Continue oxygen and inhalers. 6. Malnutrition with low albumin. In spite of taking 100% of her meals, she actually lost a little bit of weight during her stay and she can follow up with the dietitian per Jaylen as determined by Primary Care. 7. Anemia. She is iron deficient. Continue iron replacement through 2016, and follow up with primary care provider. Greater than 30 minutes floor time were spent on this discharge including medication reconciliation, coordination of care and counseling patient. Copy requested to: Dr. Ekaterina York /[id number]/MODL MTDD
== END 2017-05-09 13:31 | disposition home or self-care (01) | DRG 57 ==
LOC: BREH 16:25
PROVIDERS: ADMIT Internal Medicine; ATTEND Internal Medicine
PROC: F0636ZZ Communicative/Cognitive Integration Skills Treatment of Neurological System - Whole Body (ICD-10-PCS; principal; 2017-05-03)
PROC: F08Z7ZZ Vocational Activities and Functional Community or Work Reintegration Skills Treatment (ICD-10-PCS; principal; 2017-05-03)
PROC: F07M3ZZ Motor Function Treatment of Musculoskeletal System - Whole Body (ICD-10-PCS; principal; 2017-05-03)
DX: I69.354 Hemiplegia and hemiparesis following cerebral infarction affecting left non-dominant side (principal); E46 Unspecified protein-calorie malnutrition; Z68.1 Body mass index [BMI] 19.9 or less, adult; I69.391 Dysphagia following cerebral infarction; T82.818D Embolism due to vascular prosthetic devices, implants and grafts, subsequent encounter; J44.9 Chronic obstructive pulmonary disease, unspecified; J96.10 Chronic respiratory failure, unspecified whether with hypoxia or hypercapnia; D50.9 Iron deficiency anemia, unspecified; Z99.81 Dependence on supplemental oxygen; Z85.51 Personal history of malignant neoplasm of bladder
CPT/HCPCS: 82607-90; 92507-GN; 92522-GN; 92526-GN; 92610-GN; 97110-GO; 97110-GP; 97112-GP; 97116-GP; 97162-GP; 97164-GP; 97166-GO; 97530-GO; 97530-GP; 97532-GO; 97535-GO